=== PATIENT | male | born 1995 | race Caucasian/White ===

== ENCOUNTER 2017-11-25 19:30 | Emergency (ER) | payer BC, OTHER ==
[~2017-11-25] VITALS: Ht 177.8 cm; Wt 90.7 kg
--- NOTE | ~2017-11-25 | EKG ---
[address] [address] ELECTROCARDIOGRAM REPORT Name: KALYN MERRILL Room #: [facility].R.#: [id number] Admission: Attend Phys: Discharge: Date of : [birth year] Report #: [id number] THIS REPORT FOR: //name// 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
--- NOTE | ~2017-11-25 | EKG ---
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
[2017-11-25] MEDS ORDERED: BREO ELLIPTA 11 EACH (19:51)
[2017-11-25] MEDS ORDERED: ZYRTEC10 M4 (19:52)
[2017-11-25 20:18] LABS: HEMATOCRIT 47.9 % (42.0-52.0); HEMOGLOBIN 17.1 gm/dL (14.0-18.0); MCH 33.5 pg (26.0-34.0); MCHC 35.6 g/dL (28.0-37.0); MCV 93.9 fL (80.0-100.0); RBC 5.11 mil/uL (4.50-6.00); RDW 12.4 % (10.5-14.5); WBC 8.5 thou/uL (4.0-11.0)
[2017-11-25 20:29] LABS: ANION GAP 10 mmol/L (7-16); BUN 14 mg/dL (7-18); CALCIUM 9.4 mg/dL (8.5-10.1); CHLORIDE 101 mmol/L (98-107); CO2 24 mmol/L (21-32); CREATININE 1.2 mg/dL (0.7-1.3); GLUCOSE 215 mg/dL (74-106); SODIUM 135 mmol/L (136-145)
[2017-11-25 20:40] LABS: ALBUMIN 3.9 g/dL (3.4-5.0); SGOT 23 U/L (15-37); SGPT 56 U/L (30-65); TOTAL BILIRUBIN 0.5 mg/dL (<0.1-1.0); TOTAL PROTEIN 7.3 g/dL (6.4-8.2); TROPONIN-I <0.06 ng/mL (<0.06)
[2017-11-25 20:48] LABS: AMP/METHAMP Negative (Negative); BARBITURATES Negative (Negative); BENZODIAZEPINES Negative (Negative); COCAINE Negative (Negative); METHADONE Negative (Negative); OPIATES Negative (Negative); PCP Negative (Negative)
[2017-11-25] MEDS ORDERED: CENTRUM SILVER1 EAC2 PO (21:49)
[2017-11-25] MEDS ORDERED: KLOR-CON 1010 MEQ PO (21:49)
[2017-11-25 22:18] VITALS: BP 133/84
== END 2017-11-25 22:18 | disposition home or self-care (01) ==
LOC: ER 19:30
PROVIDERS: Emergency Medicine
DX: E87.6 Hypokalemia (principal); E83.42 Hypomagnesemia; R00.2 Palpitations; J45.909 Unspecified asthma, uncomplicated